=== PATIENT | male | born 1990 | race Two or more races ===

== ENCOUNTER 2019-02-25 21:33 | Emergency (ER) | payer OTHER ==
[~2019-02-25] VITALS: Ht 167.6 cm; Wt 63.6 kg
[2019-02-26] MEDS ORDERED: HYDROCODONE/ACETAMINOPHEN 5/325MG TABLET PO ONE
[2019-02-26 00:14] VITALS: BP 119/69
== END 2019-02-26 00:18 | disposition home or self-care (01) ==
LOC: ER 21:33
DX: K04.7 Periapical abscess without sinus (principal)
CPT/HCPCS: 99283

== ENCOUNTER 2019-04-15 14:47 | Emergency (ER) | payer OTHER ==
[~2019-04-15] VITALS: Ht 167.6 cm; Wt 76.0 kg
[2019-04-15 20:31] VITALS: BP 127/66
== END 2019-04-15 20:31 | disposition home or self-care (01) ==
LOC: ER 17:27
DX: K02.9 Dental caries, unspecified (principal)
CPT/HCPCS: 99283